=== PATIENT | female | born 1995 | race Hispanic/Latino ===

== ENCOUNTER 2017-07-02 21:00 | Emergency (ER) | payer SELFPAY ==
--- NOTE | 2017-07-02 22:28 | ER ---
Nurse's Notes [facility] Name: Ella eBrnard Age: 21 yrs Sex: Female : 1995 Arrival Date: 07/02/2017 Time: 21:01 Bed 15 Private MD: Diagnosis: Palpitations Presentation: 07/02 21:09 Presenting complaint: Patient states: Chest pain that began around 1630 today with left lp1 arm tingling, bilateral legs tingling, dizzy, vomited x1; States seen by public accountant, Dr. Espinoza, and told she has a "heart problem", unknown medication prescribed, has not started medication; Patient states she has been under a lot of stress at home; Symptoms resolving during triage. Transition of care: patient was not received from another setting of care. Onset of symptoms was July 02, 2017 at 16:30. Initial Sepsis Screen: Does the patient meet any 2 criteria? No. Patient's initial sepsis screen is negative. Does the patient have a suspected source of infection? No. Patient's initial sepsis screen is negative. Care prior to arrival: None. 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 - Social history:: Smoking status: Patient/guardian denies using tobacco. Screenin:13 Abuse screen: Denies threats or abuse. Denies injuries from another. Nutritional lp1 screening: No deficits noted. Tuberculosis screening: No symptoms or risk factors identified. Fall Risk None identified. Assessment: 21:45 General: Appears in no apparent distress. uncomfortable, Behavior is cooperative, tl2 appropriate for age, anxious. General: Pt states, I got my test results back today from the public accountant but I don't know what they mean and He gave me a pill but I don't know what it is and I didn't take it. Pt reports increased stress with her family. Pain: Complains of pain in left chest Pain radiates to left arm Pain began 1 day ago. Neuro: Level of Consciousness is awake, alert, obeys commands, Oriented to person, place, time, situation. Cardiovascular: Heart tones S1 S2 present Rhythm is sinus rhythm Chest pain is described as mild, quality is sharp, is located in left radiates to left arm(s). Respiratory: Airway is patent Respiratory effort is even, unlabored, Respiratory pattern is regular, symmetrical. GI: No signs and/or symptoms were reported involving the gastrointestinal system. : No signs and/or symptoms were reported regarding the genitourinary system. Derm: Skin is pink, warm \\T\\ dry. 22:30 Reassessment: Patient appears in no apparent distress at this time. Patient and/or tl2 family updated on plan of care and expected duration. Pain level reassessed. Patient is alert, oriented x 3, equal unlabored respirations, skin warm/dry/pink. Pt states pain has gone away. Appears calm and relaxed Patient denies pain at this time. Patient states feeling better. 22:58 Reassessment: Patient appears in no apparent distress at this time. Patient and/or tl2 family updated on plan of care and expected duration. Pain level reassessed. Patient is alert, oriented x 3, equal unlabored respirations, skin warm/dry/pink. Pt verbalized understanding of discharge instructions and need for follow up. Vital Signs: 21:12 BP 126 / 83; Pulse 88; Resp 18; Temp 98.8(O); Pulse Ox 98% on R/A; Weight 58.97 kg; lp1 Height 5 ft. 2 in. (157.48 cm); Pain 4/10; 22:58 BP 124 / 73; Pulse 87; Resp 17; Pulse Ox 98% on R/A; Pain 0/10; tl2 21:12 Body Mass Index 23.78 (58.97 kg, 157.48 cm) lp1 ED Course: 21:01 Patient arrived in ED. am2 21:11 Triage completed. lp1 21:12 Arm band placed on right wrist. lp1 21:13 Patient maintains SpO2 saturation greater than 95% on room air. lp1 21:30 Patient has correct armband on for positive identification. Placed in gown. Bed in low tl2 position. Call light in reach. Side rails up X 1. Pulse ox on. NIBP on. 21:30 No provider procedures requiring assistance completed. tl2 22:01 Cinth[facility] Huffman [facility]C [facility]. snw 22:01 Curt Queen MD is Attending Physician. snw 22:54 Estela Jiménez, RN is Primary Nurse. tl2 23:00 Patient did not have IV access during this emergency room visit. tl2 Administered Medications: No medications were administered Outcome: :27 Discharge ordered by . snw 23:00 Discharged to home ambulatory, with family. tl2 23:00 Condition: stable 23:00 Discharge instructions given to patient, family, Instructed on discharge instructions, follow up and referral plans. Demonstrated understanding of instructions, follow-up care. 23:01 Patient left the ED. tl2 Signatures: Cinthya Huffman FNP-C DRAINAGE DESIGN COORDINATOR-Csnw Criss Cardoza RN RN lp1 Estela Jiménez RN RN tl2 Leeanne Gupta am2 Corrections: (The following items were deleted from the chart) 21:14 21:09 Presenting complaint: Patient states: Chest pain that began around 1630 today lp1 with left arm tingling, bilateral legs tingling, dizzy, vomited x1; States seen by public accountant and told she has a "heart problem", unknown medication prescribed, has not started medication; Patient states she has been under a lot of stress at home; Symptoms resolving during triage lp1
--- NOTE | 2017-07-02 22:28 | EDPHYS ---
Physician Documentation [facility] Name: Ella Bernard Age: 21 yrs Sex: Female : 1995 Arrival Date: 07/02/2017 Time: 21:01 Bed 15 Private MD: ED Physician Curt Queen HPI: 07/02 23:43 This 21 yrs old Female presents to ER via Ambulatory with complaints of Chest snw Pain, Numbness Of Arm. 23:43 The patient presents with a history of heart racing. Context: The symptoms occur at snw rest, with anxiety. Onset: The symptoms/episode began/occurred suddenly, 1 month(s) ago, and became persistent. Duration: The patient or guardian reports multiple episodes, that wax and wane, with no pattern. Modifying factors: The symptoms are aggravated by anxiety, stress. Severity of symptoms: At their worst the symptoms were moderate. The patient has experienced similar episodes in the past, several times. The patient has been recently seen by a physician: a assembly person. 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 - Social history:: Smoking status: Patient/guardian denies using tobacco. ROS: 23:39 Constitutional: Negative for fever, chills, and weight loss, Eyes: Negative for injury, snw pain, redness, and discharge, ENT: Negative for injury, pain, and discharge, Neck: Negative for injury, pain, and swelling. 23:39 Respiratory: Negative for shortness of breath, cough, wheezing, and pleuritic chest pain, Abdomen/GI: Negative for abdominal pain, nausea, vomiting, diarrhea, and constipation, Back: Negative for injury and pain, : Negative for injury, bleeding, discharge, and swelling, Skin: Negative for injury, rash, and discoloration, Neuro: Negative for headache, weakness, numbness, tingling, and seizure. 23:39 Cardiovascular: Positive for chest pain, palpitations. 23:39 MS/extremity: Positive for paresthesias, tingling, of the left arm and left leg. Exam: 23:39 Constitutional: This is a well developed, well nourished patient who is awake, alert, snw and in no acute distress. Head/Face: Normocephalic, atraumatic. Eyes: Pupils equal round and reactive to light, extra-ocular motions intact. Lids and lashes normal. Conjunctiva and sclera are non-icteric and not injected. Cornea within normal limits. Periorbital areas with no swelling, redness, or edema. ENT: Nares patent. No nasal discharge, no septal abnormalities noted. Tympanic membranes are normal and external auditory canals are clear. Oropharynx with no redness, swelling, or masses, exudates, or evidence of obstruction, uvula midline. Mucous membranes moist. Neck: Trachea midline, no thyromegaly or masses palpated, and no cervical lymphadenopathy. Supple, full range of motion without nuchal rigidity, or vertebral point tenderness. No Meningismus. Chest/axilla: Normal chest wall appearance and motion. Nontender with no deformity. No lesions are appreciated. Cardiovascular: Regular rate and rhythm with a normal S1 and S2. No gallops, murmurs, or rubs. Normal PMI, no JVD. No pulse deficits. Respiratory: Lungs have equal breath sounds bilaterally, clear to auscultation and percussion. No rales, rhonchi or wheezes noted. No increased work of breathing, no retractions or nasal flaring. Abdomen/GI: Soft, non-tender, with normal bowel sounds. No distension or tympany. No guarding or rebound. No evidence of tenderness throughout. Back: No spinal tenderness. No costovertebral tenderness. Full range of motion. Skin: Warm, dry with normal turgor. Normal color with no rashes, no lesions, and no evidence of cellulitis. MS/ Extremity: Pulses equal, no cyanosis. Neurovascular intact. Full, normal range of motion. Neuro: Awake and alert, GCS 15, oriented to person, place, time, and situation. Cranial nerves II-XII grossly intact. Motor strength 5/5 in all extremities. Sensory grossly intact. Cerebellar exam normal. Normal gait. Vital Signs: 21:12 BP 126 / 83; Pulse 88; Resp 18; Temp 98.8(O); Pulse Ox 98% on R/A; Weight 58.97 kg; lp1 Height 5 ft. 2 in. (157.48 cm); Pain 4/10; 22:58 BP 124 / 73; Pulse 87; Resp 17; Pulse Ox 98% on R/A; Pain 0/10; tl2 21:12 Body Mass Index 23.78 (58.97 kg, 157.48 cm) lp1 MDM: 22:01 Patient medically screened. snw 23:40 Data reviewed: vital signs, nurses notes. Data interpreted: Pulse oximetry: on room air snw is 98 %. Interpretation: normal. Counseling: I had a detailed discussion with the patient and/or guardian regarding: the historical points, exam findings, and any diagnostic results supporting the discharge/admit diagnosis, the need for outpatient follow up, to return to the emergency department if symptoms worsen or persist or if there are any questions or concerns that arise at home. Special discussion: Based on the history and exam findings, there is no indication for further emergent testing or inpatient evaluation. I discussed with the patient/guardian the need to see the assembly person for further evaluation of the symptoms. I discussed with the patient/guardian the need to see the primary care provider for further evaluation of the symptoms. ED course: Pt saw Dr. Espinoza. Dx with palpitations. Work up performed and pt was given results and "new medicine" today. Pt has not taken medications and is now pain free in the ED. . Administered Medications: No medications were administered Disposition: 07/02/17 22:27 Discharged to Home. Impression: Palpitations. - Condition is Stable. - Discharge Instructions: Nonspecific Chest Pain, Hypertension, Palpitations, Generalized Anxiety Disorder. - Medication Reconciliation Form, Thank You Letter, Antibiotic Education, Prescription Opioid Use form. - Follow up: Private Physician; When: 2 - 3 days; Reason: Recheck today's complaints, Continuance of care, Re-evaluation by your physician. Follow up: Emergency Department; When: As needed; Reason: Worsening of condition. Addendum: 07/07/2017 06:39 Co-signature as Attending Physician, Curt Queen MD Available for consultation at p s1 all times. . Signatures: Cinthya Huffman, ANALYSIS CONSULTANT-C ANALYSIS CONSULTANT-Csnw Criss Cardoza RN RN lp1 Estela Jiménez RN RN tl2 Queen, Curt, MD MD ps1
--- NOTE | 2017-07-04 16:14 | EKG ---
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
== END 2017-07-02 23:01 | disposition home or self-care (01) ==
LOC: ER 21:00
DX: R07.9 Chest pain, unspecified (principal); I10 Essential (primary) hypertension
CPT/HCPCS: 93005; 99284